=== PATIENT | male | born 1995 | race Caucasian/White ===

== ENCOUNTER 2018-12-07 08:43 | Emergency (ER) | payer OTHER ==
[2018-12-07 08:56] VITALS: BP 125/72
--- NOTE | 2018-12-07 09:34 | ED Physician Documentation ---
PD HPI LOWER EXT INJURY - Stated complaint Stated Complaint: KNEE LACERATION - Chief complaint Chief Complaint: Laceration - History obtained from History obtained from: Patient - History of Present Illness PD HPI LOW EXT INJURY LOCATION: Right, Knee Type of injury: Blunt / blow Where injury occurred: Home Timing - onset: Last night Timing - duration: Hours Timing - details: Abrupt onset, Still present Improved by: Rest, Immobilization Worsened by: Moving, Palpating Associated symptoms: No: Weakness, Numbness, Tingling Similar symptoms before: Diagnosis (laceration) Recently seen: Not recently seen - Additional information Additional information: Previously well 23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 He was able to control bleeding with direct pressure and is placed him some butterfly bandage on it is come in today at the insistence of his command for evaluation of his wound. Review of Systems Constitutional: denies: Fever Respiratory: denies: Cough GI: denies: Vomiting PD PAST MEDICAL HISTORY - Past Medical History Past Medical History: No - Past Surgical History Past Surgical History: No - Present Medications Home Medications: Ambulatory Orders Medication Instructions Recorded Confirmed No Known Home Medications 12/07/18 12/07/18 - Allergies Allergies/Adverse Reactions: Allergies Allergy/AdvReac Type Severity Reaction Status Date / Time No Known Drug Allergies Allergy Verified 12/07/18 08:56 - Social History Does the pt smoke?: No Smoking Status: Never smoker PD ED PE NORMAL - Vitals Vital signs reviewed: Yes (normal) - General General: Alert and oriented X 3, No acute distress, Well developed/nourished - HEENT HEENT: Atraumatic, PERRL, EOMI - Respiratory Respiratory: No respiratory distress - Derm Derm: Normal color, Warm and dry, No rash - Extremities Extremities: Other (There is a 3cm superficial laceration with abrasion to the right patella. distal n/v is intact) - Neuro Neuro: Alert and oriented X 3, layer out plate glass 2-12 intact, No motor deficit, No sensory deficit, Normal speech Eye Opening: Spontaneous Motor: Obeys Commands Verbal: Oriented GCS Score: 15 - Psych Psych: Normal mood, Normal affect Results - Vitals Vitals: Vital Signs - 24 hr 12/07/18 08:54 Temperature 36.7 C Heart Rate 62 Respiratory 18 Rate Blood Pressure 125/72 O2 Saturation 98 Oxygen O2 Source Room air Procedures - Laceration (location) right knee Length in cm: 3 Wound type: Linear, Superficial, Clean Neurovascular status: Sensory intact, Motor intact, Vascular intact Tendon involvement: Tendon intact Wound Preparation: Hibiclens, Irrigated copiously NS, Wound explored, To the base Skin layer closure: Steri strips Other: Patient tolerated well, No complications, Neurovascular intact, Dressing applied, Tetanus UTD PD MEDICAL DECISION MAKING - ED course Complexity details: considered differential, d/w patient ED course: 23-year-old male with a laceration to his right knee has a partial-thickness laceration and this is repaired with Steri-Strips and tincture of benzoin. There is an abrasion to the area as well. Patient tolerates this well. Departure - Departure Disposition: 01 Home, Self Care Clinical Impression: Laceration of right knee Qualifiers: Encounter type: initial encounter Qualified Code(s): S81.011A - Laceration without foreign body, right knee, initial encounter Instructions: ED Laceration Ext Sutr Stap Tape Follow-Up: EILEEN Adams [Provider Group]
== END 2018-12-07 09:44 | disposition home or self-care (01) ==
LOC: ED 08:43
DX: S81.011A Laceration without foreign body, right knee, initial encounter (principal); W22.09XA Striking against other stationary object, initial encounter; Y92.009 Unspecified place in unspecified non-institutional (private) residence as the place of occurrence of the external cause
CPT/HCPCS: 99281; 99282

== ENCOUNTER 2019-04-21 17:36 | Emergency (ER) | payer OTHER ==
[2019-04-21 17:48] VITALS: BP 140/80
[2019-04-21] MEDS ORDERED: DEXAMETHASONE 10 MG/ML VIAL PO STA (18:03)
[2019-04-21] MEDS ORDERED: IBUPROFEN 800 MG TABLET PO STA (18:03)
[2019-04-21] MEDS ORDERED: PENICILLIN VK 250 MG TABLET PO STA (18:03)
[2019-04-21 18:06] LABS: RAPID STREP SCREEN Negative (Negative)
--- NOTE | 2019-04-21 18:07 | ED Physician Documentation ---
History of Present Illness - Stated complaint Stated Complaint: SORE THROAT - Chief complaint Chief Complaint: Heent - History obtained from History obtained from: Patient - History of Present Illness Timing: Today Pain level max: 8 Pain level now: 8 - Additonal information Additional information: 23-year-old male presents to the emergency department for sore throat today. No fever. No cough. No nausea or vomiting. Worse with swallowing and better with rest. Has not taken anything for this. Patient is otherwise healthy. Review of Systems Constitutional: denies: Fever, Chills Respiratory: denies: Cough GI: denies: Vomiting, Diarrhea Skin: denies: Rash Musculoskeletal: denies: Neck pain, Back pain Neurologic: denies: Headache PD PAST MEDICAL HISTORY - Past Medical History Past Medical History: No - Past Surgical History Past Surgical History: No - Present Medications Home Medications: Ambulatory Orders Medication Instructions Recorded Confirmed Ibuprofen [Motrin] 800 mg PO Q8H PRN #30 tablet 04/21/19 Penicillin V Potassium 500 mg PO Q6HR #40 tablet 04/21/19 - Allergies Allergies/Adverse Reactions: Allergies Allergy/AdvReac Type Severity Reaction Status Date / Time amphetamine [From Adderall] Allergy Unknown Verified 04/21/19 17:45 dextroamphetamine Allergy Unknown Verified 04/21/19 17:45 [From Adderall] - Living Situation Living Arrangement: reports: At home - Social History Does the pt smoke?: No Smoking Status: Never smoker PD ED PE NORMAL - Vitals Vital signs reviewed: Yes - General General: Alert and oriented X 3, No acute distress - HEENT HEENT: PERRL, Ears normal, Moist mucous membranes, Other (Posterior oropharynx is erythematous with tonsillar exudates. Normal phonation. No trismus. Uvula midline.) - Neck Neck: Supple, no meningeal sign, Other (Shotty anterior lymphadenopathy) - Cardiac Cardiac: RRR, Strong equal pulses - Respiratory Respiratory: No respiratory distress, Clear bilaterally - Abdomen Abdomen: Soft, Non tender, Non distended - Derm Derm: Warm and dry, No rash - Neuro Neuro: Alert and oriented X 3 - Psych Psych: Normal mood, Normal affect Results - Vitals Vitals: Vital Signs - 24 hr 04/21/19 17:45 Temperature 37.4 C Heart Rate 90 Respiratory 14 Rate Blood Pressure 140/80 H O2 Saturation 98 Oxygen O2 Source Room air - Labs Labs: Laboratory Tests 04/21/19 17:45 Group A Strep Rapid Negative PD MEDICAL DECISION MAKING - ED course Complexity details: reviewed results, re-evaluated patient, considered differential (No peritonsillar or retropharyngeal abscess.), d/w patient ED course: Patient with what appears to be strep pharyngitis. He is well-appearing, nontoxic. Afebrile. Tolerating p.o. without difficulty. Given a dose of dexamethasone here as well as Motrin. We will prescribe penicillin for home. patient counseled regarding signs and symptoms for which I believe and urgent re-evaluation would be necessary. Patient with good understanding of and agreement to plan and is comfortable going home at this time This document was made in part using voice recognition software. While efforts are made to proofread this document, sound alike and grammatical errors may occur. Departure - Departure Disposition: 01 Home, Self Care Clinical Impression: Tonsillitis Condition: Good Instructions: ED Strep Pharyngitis Conf Follow-Up: ISRA PRESCOTT MD [Primary Care Provider] - As Needed Prescriptions: Penicillin V Potassium 500 mg PO Q6HR #40 tablet Ibuprofen [Motrin] 800 mg PO Q8H PRN #30 tablet PRN Reason: PAIN &/OR FEVER Comments: Drink plenty of fluids and rest. Return if you worsen. Follow-up with your doctor as needed for further care. Take all antibiotics until gone even if you are feeling better. Forms: Activity restrictions
== END 2019-04-21 18:23 | disposition home or self-care (01) ==
LOC: ED 17:36
DX: J03.90 Acute tonsillitis, unspecified (principal)
CPT/HCPCS: 87070; 87430; 99283; 99284; A9270

== ENCOUNTER 2020-08-31 19:23 | Emergency (ER) | payer OTHER ==
[2020-08-31] MEDS ORDERED: IBUPROFEN 600 MG TABLET PO STA (20:43)
--- NOTE | 2020-08-31 20:43 | ED Physician Documentation ---
History of Present Illness - Stated complaint Stated Complaint: RT LEG PX/INJ - Chief complaint Chief Complaint: Ext Problem - History obtained from History obtained from: Patient - Additonal information Additional information: 24-year-old man Presents with sudden onset 9 out of 10 right hamstring pain sudden in onset while playing soccer. Patient states that he was running in the sped up suddenly, feeling a right leg popping sensation and sudden onset constant pain that is aching, localized to the right outer thigh, radiating down to the knee, currently a 5 out of 10, worse with stretching. Denies swelling, redness, numbness or weakness.Ambulatory with pain Review of Systems Skin: denies: Lesions, Abrasion (s), Laceration (s) Musculoskeletal: reports: Extremity pain Neurologic: denies: Focal weakness, Numbness PD PAST MEDICAL HISTORY - Past Medical History Past Medical History: No - Past Surgical History Past Surgical History: No - Present Medications Home Medications: Ambulatory Orders Medication Instructions Recorded Confirmed Ibuprofen [Motrin] 800 mg PO Q8H PRN #30 tablet 04/21/19 Penicillin V Potassium 500 mg PO Q6HR #40 tablet 04/21/19 - Allergies Allergies/Adverse Reactions: Allergies Allergy/AdvReac Type Severity Reaction Status Date / Time amphetamine [From Adderall] Allergy Unknown Verified 08/31/20 19:27 dextroamphetamine Allergy Unknown Verified 08/31/20 19:27 [From Adderall] - Social History Does the pt smoke?: No Smoking Status: Never smoker Does the pt drink ETOH?: Yes ETOH Use: Beer Does the pt have substance abuse?: No - Immunizations Immunizations are current?: Yes Immunizations: TDAP current <10years - POLST Patient has POLST: No PD ED PE NORMAL - Vitals Vital signs reviewed: Yes - General General: Alert and oriented X 3, No acute distress, Well developed/nourished - HEENT HEENT: Atraumatic, PERRL, EOMI - Derm Derm: Normal color, Warm and dry, Other (No swelling) - Extremities Extremities: No deformity, Other (discomfort with ROM of the R knee. ttp along ileotibial band. neg kaushik test and anterior drawer sign. no laxity on valgus/varus testing) - Neuro Neuro: No motor deficit, No sensory deficit - Psych Psych: Normal mood, Normal affect Results - Vitals Vitals: Vital Signs - 24 hr 08/31/20 19:27 Temperature 36.5 C Heart Rate 94 Respiratory 16 Rate Blood Pressure 150/83 H O2 Saturation 98 Oxygen O2 Source Room air PD MEDICAL DECISION MAKING - ED course ED course: 24-year-old man presents with right hamstring injury while playing soccer. Appears to have mild iliotibial band injury. Discussed conservative measures. Provided crutches, Bernabe wrap, and advised him to follow-up with his primary docto r for referral to physical therapy as needed. return precautions given. Departure - Departure Disposition: 01 Home, Self Care Clinical Impression: Right hamstring injury Condition: Good Instructions: Hamstring Stretch Comments: You are seen in the emergency department for hamstring injury. You should apply ice for 20 minutes every hour, wear an bernabe bandage, elevate the leg above the level of your heart to reduce swelling, and take ibuprofen 600mg every 6 hours as needed with a snack. He can start doing gentle stretching exercises as tolerated after 48 hours. Return to the emergency department if you have any new or worsening symptoms or other concerns. Follow-up with your primary doctor. You may need referral to physical therapy if you have persistent pain after the injury.
[2020-08-31 20:50] VITALS: BP 133/79
== END 2020-08-31 20:51 | disposition home or self-care (01) ==
LOC: ED 19:23
DX: S79.921A Unspecified injury of right thigh, initial encounter (principal); X58.XXXA Exposure to other specified factors, initial encounter; Y93.66 Activity, soccer
CPT/HCPCS: 99282; 99283; A9270

== ENCOUNTER 2022-01-13 03:24 | Emergency (ER) | payer OTHER ==
[2022-01-13 03:39] VITALS: BP 134/83
--- NOTE | 2022-01-13 03:48 | ED Physician Documentation ---
PD HPI UPPER EXT INJURY - Stated complaint Stated Complaint: RT THUMB LAC - Chief complaint Chief Complaint: Laceration - History obtained from History obtained from: Patient - Additonal information Additional information: Patient is a 26-year-old male presenting for evaluation of a right thumb lacerat ion that occurred just prior to arrival. He was cutting a piece of frozen meat with a serrated knife as he woke up feeling hungry. 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 Review of Systems Constitutional: denies: Fever Cardiac: denies: Chest pain / pressure Respiratory: denies: Dyspnea GI: denies: Abdominal Pain Skin: reports: Laceration (s) Neurologic: denies: Headache PD PAST MEDICAL HISTORY - Past Medical History Past Medical History: No - Past Surgical History Past Surgical History: No - Present Medications Home Medications: Ambulatory Orders Medication Instructions Recorded Confirmed No Known Home Medications 07/13/21 01/13/22 - Allergies Allergies/Adverse Reactions: Allergies Allergy/AdvReac Type Severity Reaction Status Date / Time amphetamine [From Adderall] Allergy Unknown Verified 01/13/22 03:39 dextroamphetamine Allergy Unknown Verified 01/13/22 03:39 [From Adderall] - Social History Does the pt smoke?: No Smoking Status: Never smoker Does the pt drink ETOH?: Yes ETOH Use: Wine, Beer Does the pt have substance abuse?: No - Immunizations Immunizations are current?: Yes Immunizations: TDAP current <10years - POLST Patient has POLST: No PD ED PE NORMAL - General General: Alert and oriented X 3, No acute distress, Well developed/nourished - HEENT HEENT: Atraumatic - Cardiac Cardiac: RRR - Respiratory Respiratory: No respiratory distress - Extremities Extremities: Other (1 and half centimeter laceration to palmar aspect of right thumb, full range of motion of left thumb at all joints, brisk cap refill, sensation grossly intact) PD ED PE EXPANDED - Extremities ZEINAB UE/Hands Visual: 1 - laceration Results - Vitals Vitals: Vital Signs - 24 hr 01/13/22 03:30 Temperature 36.2 C L Heart Rate 84 Respiratory 16 Rate Blood Pressure 134/83 H O2 Saturation 97 Oxygen O2 Source Room air Procedures - Laceration (location) Right thumb Length in cm: 2 Wound type: Linear, Clean Neurovascular status: Sensory intact, Motor intact, Vascular intact Tendon involvement: Tendon intact Anesthesia: Lidocaine 1% Wound preparation: Hibiclens, Irrigated copiously NS Skin layer closure: Interrupted, Size #-0 - enter number (4), Sutures - enter # (6) Other: Patient tolerated well, No complications, Neurovascular intact, Dressing applied, Tetanus UTD PD MEDICAL DECISION MAKING - ED course ED course: Patient with laceration to right thumb. No foreign body. Neurovascular intact and no signs of tendon injury.Wound was cleaned and closed with sutures which patient tolerated well. His tetanus is up-to-date. Reviewed wound care instructions as well as need to return for suture removal. Patient counseled on concerning symptoms to return for. Departure - Departure Disposition: 01 Home, Self Care Clinical Impression: Laceration of right thumb Qualifiers: Encounter type: initial encounter Damage to nail status: without damage Foreign body presence: without foreign body Qualified Code(s): S61.011A - Laceration without foreign body of right thumb without damage to nail, initial encounter Condition: Stable Instructions: ED Laceration Ext Sutr Stap Tape Comments: You have 6 stitches that were placed to your right thumb. These will need to be removed in 1 week on January 20. You can return to the ER, see your primary care provider or a walk-in clinic to have the sutures removed.We have placed a dressing which I would keep on for the next 24 hours. Please use caution when using your right hand where the laceration is until the stitches are removed. Please make sure to keep the area clean and dry. If you have any concerning symptoms such as abnormal drainage, increased pain or any concerns please return to the ER. Forms: Activity restrictions
== END 2022-01-13 04:30 | disposition home or self-care (01) ==
LOC: ED 03:24
DX: S61.011A Laceration without foreign body of right thumb without damage to nail, initial encounter (principal); W26.0XXA Contact with knife, initial encounter; Y93.G1 Activity, food preparation and clean up
CPT/HCPCS: 12001; 99282

== ENCOUNTER 2023-01-07 14:15 | Emergency (ER) | payer OTHER ==
[2023-01-07 14:38] VITALS: BP 138/81; O2SAT 97
--- NOTE | 2023-01-07 15:49 | ED Physician Documentation ---
PD HPI HEENT - Stated complaint Stated Complaint: FB LT EAR - Chief complaint Chief Complaint: Heent - History obtained from History obtained from: Patient - Additional information Additional information: The pt comes to the ED for CC of "I have the end of a Q-tip stuck in my left ear and I can't get it out." The pt states he was cleaning his ears today when the cotton came off the end of the Q-tip. He tried to wash it out, but didn't see it come out, so he decided to come in. No drainage or bleeding. No hearing loss. PD PAST MEDICAL HISTORY - Past Medical History Past Medical History: Yes - Past Surgical History Past Surgical History: No - Present Medications Home Medications: Ambulatory Orders Medication Instructions Recorded Confirmed No Known Home Medications 07/13/21 01/07/23 - Allergies Allergies/Adverse Reactions: Allergies Allergy/AdvReac Type Severity Reaction Status Date / Time amphetamine [From Adderall] Allergy Unknown Verified 01/07/23 14:37 dextroamphetamine Allergy Unknown Verified 01/07/23 14:37 [From Adderall] - Social History Does the pt smoke?: No Smoking Status: Never smoker Does the pt drink ETOH?: Yes Does the pt have substance abuse?: No - Immunizations Immunizations are current?: Yes Immunizations: TDAP current <10years - POLST Patient has POLST: No PD ED PE NORMAL - Vitals Vital signs reviewed: Yes - General General: Alert and oriented X 3, No acute distress - HEENT HEENT: Atraumatic, Ears normal, Moist mucous membranes - Neck Neck: Supple, no meningeal sign - Respiratory Respiratory: No respiratory distress - Derm Derm: Warm and dry - Extremities Extremities: No deformity - Neuro Neuro: Alert and oriented X 3 - Psych Psych: Normal mood, Normal affect Results - Vitals Vitals: Oxygen O2 Source Room air PD Medical Decision Making - ED course Complexity details: considered differential, d/w patient ED course: I d/w pt that there is no evidence of any foreign material in his EAC, and that the cotton tip must have already come out. The canal is atraumatic, as well. No emergent condition identified. Departure - Departure Disposition: 01 Home, Self Care Clinical Impression: Normal exam Condition: Stable Comments: Your ear exam is actually normal. Most likely, when you are trying to get the cotton out of your ear, it fell out unbeknownst to you. You have a tiny bit of wax in your ear canal but your eardrum is completely and clearly visible and looks good. Forms: PCP List Discharge Date/Time: 01/07/23 15:52
== END 2023-01-07 15:52 | disposition home or self-care (01) ==
LOC: ED 14:15
DX: T16.2XXA Foreign body in left ear, initial encounter (principal); W44.8XXA Other foreign body entering into or through a natural orifice, initial encounter
CPT/HCPCS: 99281; 99282